=== PATIENT | male | born 1945 | race Caucasian/White ===

== ENCOUNTER 2017-09-29 06:35 | Day surgery (SDC) | payer OTHER ==
[~2017-09-29] VITALS: Ht 160 cm; Wt 65.8 kg
--- NOTE | ~2017-09-29 | OR ---
[facility] [address] [place], [place] [address] Draft DATE OF OPERATION: 09/29/2017 SURGEON: Rickey Correa MD PREOPERATIVE DIAGNOSIS: Right hydrocele. POSTOPERATIVE DIAGNOSIS: Right hydrocele. NAMES OF PROCEDURES: Right hydrocelectomy. ANESTHESIA: General. ESTIMATED BLOOD LOSS: Minimal. COMPLICATIONS: None. SPECIMENS: Right hydrocele sac sent to pathology for evaluation. DRAINS: None. INDICATIONS FOR PROCEDURE: Mr. Armstrong is a very pleasant 72-year-old gentleman, who recently presented to my clinic with complaints of progressive enlargement of his right hemiscrotum. He underwent an ultrasound, which revealed the presence of a right hydrocele, [id number] in size. We discussed the various management options for his hydrocele including surgery as well as active surveillance. The patient has chosen to undergo elective right hydrocelectomy for definitive management of his right hydrocele. OPERATIVE FINDINGS: 1. Examination of the external genitalia reveals a circumcised phallus with a glanular meatus. His testicles are descended bilaterally. His right hemiscrotum is enlarged and has a size of approximately a baseball. His left testicle is within normal limits as PATIENT NAME: Yue ARMSTRONG OPERATIVE REPORT DATE OF : 47 REPORT #: [id number] PHYSICIAN: RICKEY CORREA MD PCP: NO PRIMARY CARE PHYSICIAN REPORT IS CONFIDENTIAL AND NOT TO BE RELEASED WITHOUT AUTHORIZATION [facility] [address], [place] [address] Draft far as size. Both testicles reveal no evidence of palpable masses. 2. The patient's right hydrocele was corrected via excision of the hydrocele sac after drainage of the hydrocele fluid from within the tunica vaginalis. The procedure was performed without complication. Approximately 150 mL of straw-colored fluid was drained from the right hydrocele sac. DESCRIPTION OF PROCEDURE: After informed consent was obtained, the patient was taken back to the operating room. He was transferred from the [facility] to the operating room table, where general anesthesia was induced. He was placed in the dorsal lithotomy position and his genitalia were prepped and draped in standard sterile fashion. A marker was used to sheri the median raphae as well as approximately 4 cm transverse incision in the right hemiscrotum. The initial incision was made and was dissected down through the dartos to the level of the tunica vaginalis very gently using electrocautery. The testicle was then delivered from the right scrotum and I continued to dissect the layers of the testicle away from the tunica vaginalis layer. I then made a small incision into the tunica vaginalis and drained the fluid from the hydrocele sac. Please see above findings. The sac was then incised using electrocautery and the excess portions were then excised from the testicle and placed in a specimen cup to be sent to pathology for evaluation. The edges of the hydrocele sac were then reapproximated on the opposite edge of the testicle and then correction. They were reapproximated on the opposite edge of the testicle using 3-0 Vicryl in a continuous running fashion. The right hemiscrotum was then irrigated and any residual bleeders were then cauterized. The right testicle was then placed back into the right hemiscrotum in the appropriate orientation. The dartos layer was then closed in a continuous running fashion using 3-0 Vicryl. The superficial skin was closed in a continuous running fashion using 4-0 Vicryl. The area was cleaned and dried and bacitracin was applied along with a scrotal fluffs and scrotal support. The procedure was then terminated. The patient tolerated the procedure well without any complication. He will now be transferred to the postanesthesia care unit in stable condition. DISPOSITION: I discussed the details of today's procedure with the patient's and answered all of her questions. He will be discharged to home today in her company and will return to clinic in approximately four weeks for his first postoperative visit. He [facility] He was given specific instructions to limit his physical activity for at least the next 2-3 weeks or until I see him back again in clinic. PATIENT NAME: Yue ARMSTRONG OPERATIVE REPORT DATE OF : 47 REPORT #: [id number] PHYSICIAN: RICKEY CORREA MD PCP: NO PRIMARY CARE PHYSICIAN REPORT IS CONFIDENTIAL AND NOT TO BE RELEASED WITHOUT AUTHORIZATION [facility] [address] [place] [id number] Draft MD MIRIAM Farr/MODL /[id number] Copies: ~ PATIENT NAME: Yue ARMSTRONG OPERATIVE REPORT DATE OF : 47 REPORT #: [id number] PHYSICIAN: RICKEY CORREA MD PCP: NO PRIMARY CARE PHYSICIAN REPORT IS CONFIDENTIAL AND NOT TO BE RELEASED WITHOUT AUTHORIZATION
[~2017-09-29 06:35] MED LIST: LOSARTAN POTASS25 MG PO; LUBRIFRESH PM3.5 GM OPTH; OMEPRAZOLE20 MG PO; ONCE DAILY1 EACH PO; RESTASIS1 DROP OD; TOPROL XL50 MG PO
== END 2017-09-29 11:50 | disposition home or self-care (01) ==
LOC: DS 06:35
PROVIDERS: Urology
PROC: 0VB60ZZ Excision of Right Tunica Vaginalis, Open Approach (ICD-10-PCS; principal; 2017-09-29 08:25)
DX: N43.3 Hydrocele, unspecified (principal); N50.89 Other specified disorders of the male genital organs; K22.8 Other specified diseases of esophagus; K21.9 Gastro-esophageal reflux disease without esophagitis; I10 Essential (primary) hypertension; Z88.2 Allergy status to sulfonamides; Z79.899 Other long term (current) drug therapy
CPT/HCPCS: 00920; 88302; J0696; J1100; J2250; J2370; J2405; J3010; J7120